=== PATIENT | female | born 1970 | race Caucasian/White ===

== ENCOUNTER 2017-05-23 12:26 | Observation (INO) | payer MEDICAID, SELFPAY ==
[2017-05-23] VITALS (14 sets, daily range): BP systolic 104–128; BP diastolic 49–77; PULSE 72–92; RESP 15–24; TEMP 36.6–37.2; O2SAT 93–100; BMI 35.7; BMI 35.5; BMI 35.6
--- NOTE | 2017-05-23 12:35 | EKG12_ITS ---
Test Reason : SOB Blood Pressure : / mmHG Vent. Rate : 084 BPM Atrial Rate : 084 BPM P-R Int : 196 ms QRS Dur : 086 ms QT Int : 436 ms P-R-T Axes : 069 090 068 degrees QTc Int : 515 ms Normal sinus rhythm Prolonged QT Abnormal ECG Confirmed by KONSTANTIN ESPAÑA ([id number]), online editor RASHI ANDRADE ([id number] on 05/25/2017 1:03:22 PM Referred By: SEBAS Confirmed By:KONSTANTIN ESPAÑA
--- NOTE | 2017-05-23 12:35 | RAD_ITS ---
STUDY: X-RAY CHEST REASON FOR EXAM: Female, 46 years old. Increasing shortness of breath with yellow sputum TECHNIQUE: PA and lateral views of the chest. COMPARISON: Comparison is made with prior study dated February 02, 2017. FINDINGS: There is evidence of vascular congestion and mild degree of CHF. There is blunting of the left costophrenic angle. There is borderline cardiomegaly. A left-sided dual-chamber pacemaker is seen. Normal mediastinum and gema. Normal visualized pulmonary arteries. Normal visualized aortic arch and descending thoracic aorta. Prior fusion of the lower thoracic and upper lumbar vertebrae. Normal visualized ribs, clavicles, and shoulders. There is no demonstrated abnormality of the visualized soft tissue structures of the upper abdomen. RAD/Chest PA and Lateral IMPRESSION: Impression congestion and mild degree of CHF. Electronically Signed: Gerardo Ham MD at 13:29 EDT Tel [phone], Service support ,
--- NOTE | 2017-05-23 12:36 | ED.VISSUMM ---
- ER Visit Summary Date of Service: 05/23/17 Chief Complaint: SOB History of Present Illness: The patient is a 46 F who returns with shortness of breath. She has been having this for 2 weeks. She saw her primary care physician who gave her doxycycline and steroids. She continues to have shortness of breath. She was 88% today in the office. She does have a history of CHF and gets weekly infusions of Lasix. Her weight has gone up 5 pounds in the past week. Her shortness of breath does get worse with exertion. She denies any chest pain. Physical Examination: Vital signs reviewed. HEENT exam unremarkable. Heart is regular rate and rhythm without murmurs. Lungs have respiratory and extra Tory wheezing. Abdomen is soft and nontender. Extremities reveal no edema. Skin exam normal. Neurologic exam normal. Test Results: EEG was normal sinus rhythm. Chest x-ray reveals CHF. Creatinine 1.79. Troponin indeterminate 0.09. BNP 251 Emergency Department Course and Treatment: She will be given 1 dose of Lasix here Treatment Plan: To the hospital for diuresis due to CHF exacerbation Disposition: Admit Impression: CHF exacerbation ED Disposition - Plan for ED Patient: Chief Complaint: Shortness of Breath Referrals: Bryce Pelaez MD [Primary Care Provider] -
[2017-05-23 12:53] LABS: Absolute Lymphocyte Count 1.02 X10^3/ul (0.83-4.51); Absolute Neutrophil Count 10.5 X10^3/uL (2.0-7.7); Basophil# 0.03 X10^3/uL; Basophil% 0.2 % (0-1); Differential Indicated SCAN CRITERIA MET; Eosinophil# 0.18 X10^3/uL; Eosinophils% 1.3 % (0-5); Hematocrit 40.4 % (37-47); Lymphocyte # 1.02 X10^3/ul (4.0); Lymphocyte % 7.4 % (19-41); Mean Corp Hgb Conc 32.2 g/gl (32-36); Mean Corpuscular Hgb 31.7 pg (27.0-32.0); Mean Corpuscular Volume 98.5 fL (81-99); Mean Platelet Vol. 10.3 fl (6.2-12.0); Monocyte# 2.08 X10^3/uL; Monocyte% 15.1 % (0-10); Neutrophil # 10.45 X10^3/uL (2.7-7.7); Neutrophil % 75.6 % (47-70); POSITIVE COUNT NO; POSITIVE DIFFERENTIAL YES; POSITIVE MORPHOLOGY NO; Platelet Count 197 K/mm3 (150-450); RBC Distribution Width CV 15.5 % (11.6-14.6); RBC Distribution Width SD 55.7 fl (35.1-43.9); White Blood Count 13.8 K/mm3 (4.4-11.0)
[2017-05-23 13:18] LABS: Differential Comment SCANNED
[2017-05-23 13:19] LABS: BNP,B-Type NATRIURETIC PEPTIDE 251.8 pg/mL (0-100)
[2017-05-23 13:28] LABS: Anion Gap 10 (5-15); BUN 41 mg/dL (7-18); BUN/Creat Ratio 22.9 RATIO (10-20); Calcium,Total 9.4 mg/dL (8.5-10.1); Chloride 95 mmol/L (98-107); Creatinine, Serum 1.79 mg/dL (0.55-1.02); EST Glomerular Filtration Rate 32 mL/min (>60); Est Glom Filt Rate - Afr Amer 39 mL/min (>60); Estimated Creatinine Clearance 29.63 ml/min; Glucose 265 mg/dL (70-110); Sodium Level 133 mmol/L (136-145)
[2017-05-23] MEDS: Furosemide 40 MG/4 ML Vial IV (14:02)
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
[2017-05-23] MEDS: Ipratropium/Albuterol Sulfate 3 ML AMPUL.NEB INHALATION ×3 (15:21→23:01)
[2017-05-23] MEDS: Aspirin 81 MG TAB.CHEW PO (16:35)
[2017-05-23 17:40] LABS: Bedside Glucose 139 mg/dL (70-110)
[2017-05-23] MEDS: guaiFENesin/Codeine 5 ML UDC PO (21:19)
[2017-05-23] MEDS: oxyCODONE 5 MG Tablet PO (21:20)
[2017-05-23] MEDS: guaiFENesin 1,200 MG Tablet 1200 MG PO (21:21)
[2017-05-23] MEDS: APIXABAN 2.5 MG TABLET PO (21:22)
[2017-05-23] MEDS: Docusate Sodium 100 MG Capsule PO (21:23)
[2017-05-23] MEDS: Senna Tablet 2 TABLET PO (21:23)
[2017-05-23] MEDS: Ascorbic Acid 500 MG Tablet 1000 MG PO (21:24)
[2017-05-23 22:51] LABS: Bedside Glucose 133 mg/dL (70-110)
[2017-05-24] VITALS (18 sets, daily range): BP systolic 97–120; BP diastolic 43–79; PULSE 72–96; RESP 16–20; TEMP 36.3–37.2; O2SAT 91–96
[2017-05-24 02:21] LABS: Bedside Glucose 74 mg/dL (70-110)
[2017-05-24] MEDS: Ipratropium/Albuterol Sulfate 3 ML AMPUL.NEB INHALATION ×5 (03:17→23:00)
[2017-05-24 04:16] LABS: Absolute Lymphocyte Count 1.13 X10^3/ul (0.83-4.51); Absolute Neutrophil Count 8.5 X10^3/uL (2.0-7.7); Basophil# 0.06 X10^3/uL; Basophil% 0.5 % (0-1); Differential Indicated SCAN CRITERIA MET; Eosinophils% 2.4 % (0-5); Hematocrit 37.6 % (37-47); Hemoglobin 12.2 g/dl (12.0-15.0); Lymphocyte # 1.13 X10^3/ul (4.0); Lymphocyte % 9.1 % (19-41); Mean Corp Hgb Conc 32.4 g/gl (32-36); Mean Corpuscular Hgb 31.9 pg (27.0-32.0); Mean Corpuscular Volume 98.2 fL (81-99); Mean Platelet Vol. 10.3 fl (6.2-12.0); Monocyte# 2.39 X10^3/uL; Monocyte% 19.2 % (0-10); Neutrophil # 8.51 X10^3/uL (2.7-7.7); Neutrophil % 68.4 % (47-70); POSITIVE COUNT NO; POSITIVE DIFFERENTIAL YES; POSITIVE MORPHOLOGY NO; Platelet Count 187 K/mm3 (150-450); RBC Distribution Width CV 15.4 % (11.6-14.6); RBC Distribution Width SD 53.5 fl (35.1-43.9); Red Blood Count 3.83 M/mm3 (4.2-5.4); White Blood Count 12.4 K/mm3 (4.4-11.0)
[2017-05-24 04:41] LABS: Anion Gap 13 (5-15); BUN 44 mg/dL (7-18); BUN/Creat Ratio 22.2 RATIO (10-20); Calcium,Total 9.5 mg/dL (8.5-10.1); Chloride 95 mmol/L (98-107); Cholesterol 139 mg/dL (200); Creatinine, Serum 1.98 mg/dL (0.55-1.02); EST Glomerular Filtration Rate 29 mL/min (>60); Est Glom Filt Rate - Afr Amer 35 mL/min (>60); Estimated Creatinine Clearance 26.79 ml/min; Glucose 108 mg/dL (70-110); High Density Lipoprotein 46 mg/dL; Sodium Level 135 mmol/L (136-145); Thyroid Stim Hormone (TSH) 3.35 uIU/mL (0.358-3.74); Triglycerides 112 mg/dL; Very Low Density Lipoprotein 22 mg/dL (5-40)
[2017-05-24 05:23] LABS: Differential Comment SCANNED
[2017-05-24] MEDS: Levothyroxine 100 MCG Tablet PO (05:40)
[2017-05-24] MEDS: guaiFENesin/Codeine 5 ML UDC PO ×2 (06:02→21:42)
[2017-05-24 06:56] LABS: Magnesium 2.3 mg/dL (1.8-2.4)
--- NOTE | 2017-05-24 07:56 | PCM.PROGNOTE ---
Subjective: Patient is a 46-year-old female with past medical history of type 1 diabetes mellitus, ischemic cardiomyopathy with an ejection fraction of 37% on ECHO Jul 2016, chronic congestive heart failure, COPD, dual-chamber pacemaker, insulin pump, coronary artery disease with history of PTCA, chronic renal failure stage III, hypothyroidism, severe pulmonary hypertension and morbid obesity who presented to [facility] complaining of cough associated with shortness of breath X 2 weeks and fever/chills for the past 2 days. She had been treated with doxycycline as an outpatient without improvement. Her highest temp since admission was 99?F orally. Significant lab in the emergency room showed a white blood cell count of 13.8 with 76% neutrophils, sodium 133, potassium 3.0 and BUN was 41 with a creatinine of 1.79. 1.79 is within her normal range. BNP was 252. Chest x-ray did not show infiltrates but there is mild pulmonary vascular congestion which I suspect is due to pulmonary hypertension rather than acute congestive heart failure. - Physical Exam General: Alert, Oriented x3, Cooperative, No apparent distress HEENT: Atraumatic, PERRLA, EOMI, Normocephalic Oral: No Gingival or Mucosal Lesions/ Ulcerations Neck: Supple, No Nodes, No Nuchal Rigidity, Trachea Midline Lungs: Diminished, Wheezes, - - No conversational dyspnea and she is not tachypneic Cardiovascular: Regular rate, Regular Rhythm, Normal S1, Normal S2, No murmurs, No rub noted, No Gallop Abdomen: Bowel Sounds Present, Soft, Non Tender Extremities: No cyanosis, No edema, No Calf Tenderness Skin: No rashes, No breakdown Neurological: Cranial nerves II-XII grossly intact, Neuro grossly intact Psych/Mental Status: Normal Affect, Appropriate Vital Signs Temp Pulse Resp BP Pulse Ox 97.8 F 77 18 115/58 96 05/24/17 05:48 05/24/17 05:48 05/24/17 05:48 05/24/17 05:48 05/24/17 05:48 Oxygen Flow Rate 2 Oxygen Delivery Method Nasal Cannula Weight: 188 lb 4.396 oz Body Mass Index (BMI) 35.5 Intake and Output for Last 24 Hours 05/22/17 05/23/17 05/24/17 23:59 23:59 23:59 Intake Total 320 Output Total 1500 700 Balance -1180 -700 Microbiology Past 72 Hours 05/23/17 22:35 Gram Stain - Preliminary Sputum, Expectorated/Coughed 05/23/17 15:30 Influenza Types A,B Direct FA (KAJAL) - Final Mucosa - Nasopharyngeal Laboratory Tests Past 24 Hrs 05/23/17 05/23/17 05/24/17 16:26 21:13 03:48 WBC 12.4 H RBC 3.83 L Hgb 12.2 Hct 37.6 MCV 98.2 MCH 31.9 MCHC 32.4 RDW 15.4 H RDW Differential 53.5 H Plt Count 187 MPV 10.3 Immature Gran % (Auto) 0.400 Neut % (Auto) 68.4 Lymph % (Auto) 9.1 L [place] % (Auto) 19.2 H Eos % (Auto) 2.4 Baso % (Auto) 0.5 Absolute Neuts (auto) 8.5 H Absolute Lymphs (auto) 1.13 Total Counted Not Reportable Differential Comment SCANNED Diff Path Review May foll Sodium Potassium Chloride Carbon Dioxide Anion Gap BUN Creatinine Estim Creat Clear Calc Est GFR (MDRD) Af Amer Est GFR (MDRD) Non-Af BUN/Creatinine Ratio Glucose Hemoglobin A1c Calcium Magnesium Troponin I 0.09 H 0.10 H Triglycerides Cholesterol LDL Cholesterol VLDL Cholesterol HDL Cholesterol TSH 05/24/17 05/24/17 05/24/17 03:48 03:48 03:48 WBC RBC Hgb Hct MCV MCH MCHC RDW RDW Differential Plt Count MPV Immature Gran % (Auto) Neut % (Auto) Lymph % (Auto) [place] % (Auto) Eos % (Auto) Baso % (Auto) Absolute Neuts (auto) Absolute Lymphs (auto) Total Counted Differential Comment Diff Path Review Sodium 135 L Potassium 3.0 L Chloride 95 L Carbon Dioxide 27.0 Anion Gap 13 BUN 44 H Creatinine 1.98 H Estim Creat Clear Calc 26.79 Est GFR (MDRD) Af Amer 35 L Est GFR (MDRD) Non-Af 29 L BUN/Creatinine Ratio 22.2 H Glucose 108 Hemoglobin A1c 8.0 H Calcium 9.5 Magnesium Troponin I 0.09 H Triglycerides 112 Cholesterol 139 LDL Cholesterol 71 VLDL Cholesterol 22 HDL Cholesterol 46 TSH 3.35 05/24/17 03:48 WBC RBC Hgb Hct MCV MCH MCHC RDW RDW Differential Plt Count MPV Immature Gran % (Auto) Neut % (Auto) Lymph % (Auto) [place] % (Auto) Eos % (Auto) Baso % (Auto) Absolute Neuts (auto) Absolute Lymphs (auto) Total Counted Differential Comment Diff Path Review Sodium Potassium Chloride Carbon Dioxide Anion Gap BUN Creatinine Estim Creat Clear Calc Est GFR (MDRD) Af Amer Est GFR (MDRD) Non-Af BUN/Creatinine Ratio Glucose Hemoglobin A1c Calcium Magnesium 2.3 Troponin I Triglycerides Cholesterol LDL Cholesterol VLDL Cholesterol HDL Cholesterol TSH POC Glucose 05/24/17 05/23/17 05/23/17 02:16 22:40 16:47 POC Glucose 74 133 H 139 H Assessment/Plan Impressions 1. Asthmatic bronchitis -has already received appropriate outpatient therapy with doxycycline 2. Type 1 diabetes mellitus with an insulin pump 3. 2 of 4 SIRS criteria with no evidence of infection, sepsis ruled out 4. Hypoxemia 5. Chronic renal failure stage IV 6. Acute on chronic systolic/diastolic heart failure 7. Status post AICD-history of V. tach 8. Severe pulmonary hypertension 9. Obesity 10. Hypertension 11. Ischemic cardiomyopathy with 25% ejection fraction 12. Hypothyroidism Discontinue steroids orally and add budesonide to aerosol treatments - to avoid severely increased BS's/DKA Continue DuoNeb aerosols and as needed albuterol aerosols Guaifenesin 1200 mg twice daily Reevaluate in the a.m. Appreciate Dr. Barajas consult.
[2017-05-24] MEDS: Metoclopramide 10 MG Tablet PO (08:21)
[2017-05-24] MEDS: Aspirin 81 MG TAB.CHEW PO (09:35)
[2017-05-24] MEDS: Senna Tablet 2 TABLET PO ×2 (09:37→21:45)
[2017-05-24] MEDS: Docusate Sodium 100 MG Capsule PO ×2 (09:37→21:45)
[2017-05-24] MEDS: Amiodarone 200 MG Tablet PO (09:37)
[2017-05-24] MEDS: Ascorbic Acid 500 MG Tablet 1000 MG PO ×2 (09:37→21:42)
[2017-05-24] MEDS: guaiFENesin 1,200 MG Tablet 1200 MG PO ×2 (09:38→21:44)
[2017-05-24] MEDS: APIXABAN 2.5 MG TABLET PO ×2 (09:38→21:46)
[2017-05-24] MEDS: Polyethylene Glycol 3350 17 GM PACKET PO (09:38)
[2017-05-24] MEDS: Clopidogrel Bisulfate 75 MG Tablet PO (09:38)
[2017-05-24] MEDS: Atorvastatin Calcium 80 MG Tablet PO (09:44)
[2017-05-24] MEDS: Albuterol 2.5 MG/3 ML VIAL.NEB. INHALATION (09:53)
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
[2017-05-24] MEDS: Torsemide 100 MG Tablet PO ×2 (11:33→17:25)
--- NOTE | 2017-05-24 11:55 | CASEMGMT ---
1130 This RN CM to bedside to complete assessment and dietary is at bedside with pt. Florence RN CM
[2017-05-24] MEDS: Acetaminophen 325 MG Tablet 650 MG PO (13:58)
[2017-05-24] MEDS: Insulin Basal Pump 2.4 UNIT SC (14:30)
[2017-05-24 14:40] LABS: Pathologist Review Reviewed
--- NOTE | 2017-05-24 15:12 | CASEMGMT ---
[id number] Face to Face with patient for initial transition planning/care coordination assessment. RN LINDSAY introduced self and role at [facility], pt voices understanding and consents to assessment at this time. Pt is sitting up in chair in no distress at this time. Pt A/O x4 at this time and answers all questions appropriately at this time. Care providers, pharmacy, and demographics verified. See attached link. Pt states no further concerns/needs at this time. Advised pt to ask for CM if any further questions/concerns/needs arise, pt voices understanding. PLAN[place] [facility]
[2017-05-24 15:28] LABS: Bedside Glucose 320 mg/dL (70-110)
[2017-05-24 15:32] LABS: Bedside Glucose 146 mg/dL (70-110)
[2017-05-24 15:56] LABS: Bedside Glucose 397 mg/dL (70-110)
[2017-05-24] MEDS: Budesonide Respules 0.5 MG/2 ML AMPUL.NEB. INHALATION (16:01)
[2017-05-24] MEDS: Insulin Bolus Pump SC ×2 (16:05→21:43)
[2017-05-24 17:31] LABS: Bedside Glucose 340 mg/dL (70-110)
[2017-05-24 21:56] LABS: Bedside Glucose 432 mg/dL (70-110)
[2017-05-24] MEDS: LORazepam 0.5 MG Tablet PO (23:55)
[2017-05-25] VITALS (10 sets, daily range): BP systolic 91–116; BP diastolic 45–65; PULSE 76–91; RESP 16–18; TEMP 36.5–37.1; O2SAT 91–96
[2017-05-25 00:01] LABS: Bedside Glucose 381 mg/dL (70-110)
[2017-05-25 01:46] LABS: Bedside Glucose 288 mg/dL (70-110)
[2017-05-25] MEDS: Ipratropium/Albuterol Sulfate 3 ML AMPUL.NEB INHALATION ×4 (02:31→15:01)
[2017-05-25] MEDS: Metoclopramide 10 MG Tablet PO (06:34)
[2017-05-25] MEDS: Levothyroxine 100 MCG Tablet PO (06:34)
[2017-05-25 06:43] LABS: Hematocrit 37.9 % (37-47); Hemoglobin 12.2 g/dl (12.0-15.0); Mean Corp Hgb Conc 32.2 g/gl (32-36); Mean Corpuscular Hgb 31.9 pg (27.0-32.0); Mean Platelet Vol. 10.4 fl (6.2-12.0); Platelet Count 201 K/mm3 (150-450); RBC Distribution Width CV 15.3 % (11.6-14.6); RBC Distribution Width SD 53.4 fl (35.1-43.9); Red Blood Count 3.83 M/mm3 (4.2-5.4); White Blood Count 16.7 K/mm3 (4.4-11.0)
[2017-05-25 06:47] LABS: Scan Indicated on CBC? Y/N NO
[2017-05-25 07:00] LABS: ALB/GLOB Ratio 0.6 RATIO (0.9-2.4); AST(SGOT) 26 U/L (15-37); Alanine Aminotransfer ALT/SGPT 30 U/L (12-78); Albumin, Serum 2.9 g/dL (3.4-5.0); Alkaline Phosphatase 121 U/L (45-117); Anion Gap 11 (5-15); BUN 46 mg/dL (7-18); BUN/Creat Ratio 25.1 RATIO (10-20); Calcium,Total 9.4 mg/dL (8.5-10.1); Chloride 100 mmol/L (98-107); Creatinine, Serum 1.83 mg/dL (0.55-1.02); EST Glomerular Filtration Rate 32 mL/min (>60); Est Glom Filt Rate - Afr Amer 38 mL/min (>60); Estimated Creatinine Clearance 28.99 ml/min; Globulin 4.8 g/dL (2.3-3.5); Glucose 93 mg/dL (70-110); Phosphorus 2.7 mg/dL (2.5-4.9); Protein, Total 7.7 g/dL (6.4-8.2); Sodium Level 137 mmol/L (136-145)
[2017-05-25 07:01] LABS: Bedside Glucose 68 mg/dL (70-110)
[2017-05-25 07:10] LABS: Bedside Glucose 64 mg/dL (70-110)
[2017-05-25] MEDS: Budesonide Respules 0.5 MG/2 ML AMPUL.NEB. INHALATION (07:30)
[2017-05-25 07:31] LABS: Bedside Glucose 102 mg/dL (70-110)
[2017-05-25] MEDS: Aspirin 81 MG TAB.CHEW PO (07:34)
[2017-05-25] MEDS: Insulin Bolus Pump SC ×2 (08:45→12:47)
[2017-05-25] MEDS: Ascorbic Acid 500 MG Tablet 1000 MG PO (09:47)
[2017-05-25] MEDS: guaiFENesin 1,200 MG Tablet 1200 MG PO (09:48)
[2017-05-25] MEDS: Docusate Sodium 100 MG Capsule PO (09:48)
[2017-05-25] MEDS: Amiodarone 200 MG Tablet PO (09:48)
[2017-05-25] MEDS: Clopidogrel Bisulfate 75 MG Tablet PO (09:48)
[2017-05-25] MEDS: Torsemide 100 MG Tablet PO (09:48)
[2017-05-25] MEDS: Senna Tablet 2 TABLET PO (09:48)
[2017-05-25] MEDS: Atorvastatin Calcium 80 MG Tablet PO (09:48)
[2017-05-25] MEDS: Polyethylene Glycol 3350 17 GM PACKET PO (09:49)
[2017-05-25] MEDS: APIXABAN 2.5 MG TABLET PO (09:50)
--- NOTE | 2017-05-25 13:43 | PCM.DC ---
- Discharge Diagnoses Current Active Problems: Current Active and Chronic Problems Acute on chronic systolic CHF (congestive heart failure) (Acute) CKD stage 3 due to type 1 diabetes mellitus (Acute) COPD exacerbation (Acute) Diuresis (Acute) CKD (chronic kidney disease) stage 4, GFR 15-29 ml/min (Chronic) Reason(s) for Visit for Discharge Instructions: fluid overload, CKD You will use the following diet at home:: Cardiac, Fluid restricted (specify 2000 mls, 1500 mls, etc) - no more than 1500 mL per day, Renal (restricted protein/sodium) Your food should be the consistency of: Regular Your liquids should be the consistency of: Regular/Thin Discharge Activity: Return to Normal Activity, May not drive while taking narcotic pain medications., - - weigh yourself daily and keep a log of your weights. Weight Bearing Status: Weight bearing as tolerated Additional Activity Instructions:: Monitor your oxygen level at home, if less than 89%, wear 2L of oxygen and titrate up to keep your saturations 89-93%. Call your doctor if you observe: Fever of 101 or Higher, Coldness, Increased Pain, Numbness or Tingling, Change in Color, Inability to urinate, Inability to have a bowel movement, Shortness of breath, Dizziness, Fainting spells, Swelling in the ankles, Chest pain, Prolonged hiccoughing, Increased palpitations (irregular heartbeat), Calf discomfort, Uncontrolled pain Instructions: Taking Medication to Control Heart Failure, Diabetes and Kidney Disease, Discharge Instructions for Acute Kidney Injury, Discharge Instructions: COPD, Discharge Instructions for Heart Failure, Pulmonary Hypertension Allergies/Adverse Reactions: Allergies Iodinated Contrast- Oral and IV Dye [CONTRASTS] Allergy (Verified 05/23/17 09:01) Unknown lisinopril Allergy (Verified 05/23/17 09:01) Shortness of breath pregabalin [From Lyrica] Allergy (Verified 05/23/17 09:01) Other rivaroxaban [From Xarelto] Adverse Reaction (Verified 05/23/17 09:01) Other CAUSES BLLEDING, BRUSING, BLOODY NOSE Medications to take at Discharge Amiodarone HCl 200 mg PO DAILY 05/23/17 Apixaban [Eliquis] 2.5 mg PO BID 05/23/17 Ascorbic Acid [Vitamin C] 1,000 mg PO BID 05/23/17 Aspirin [Aspirin, Baby] 81 mg PO DAILY@0800 05/23/17 Atorvastatin Calcium 80 mg PO DAILY 05/23/17 Cholecalciferol (Vitamin D3) [Vitamin D3] 4,000 unit PO DAILY 05/23/17 Clopidogrel Bisulfate [Plavix] 75 mg PO DAILY 05/23/17 Docusate Sodium [Colace] 100 mg PO BID 05/23/17 Fluticasone/Vilanterol [Breo Ellipta 100-25 Mcg INH] 1 each IH DAILY 05/23/17 Insulin Basal Pump (Pt's Own) [Pump, Basal] 0 unit SC UD 05/23/17 Levothyroxine [Synthroid] 100 mcg PO DAILY 05/23/17 Lorazepam [Ativan] 0.5 mg PO QHS PRN PRN 05/23/17 Metoclopramide [Reglan] 5 mg PO DAILY 05/23/17 Polyethylene Glycol 3350 [Miralax] 17 gm PO DAILY 05/23/17 Sennosides [Senna] 2 tab PO BID 05/23/17 Spironolactone [Aldactone] 50 mg PO DAILY 05/23/17 Torsemide [Demadex] 100 mg PO BID 05/23/17 Ubidecarenone [Co Q-10] 100 mg PO DAILY 05/23/17 Umeclidinium [place] [Incruse Ellipta] 62.5 mcg IH DAILY 05/23/17 Albuterol Inhaler [Ventolin Hfa] 1 - 2 puff INHALATION Q4H PRN PRN #1 inhaler 05/25/17 Guaifenesin [Mucinex] 1,200 mg PO BID #60 tablet 05/25/17 Potassium Chloride [K-Dur] 80 meq PO BIDCM tablet 05/25/17 SimETHICONE [Mylicon] 80 mg PO Q4H PRN #30 tablet 05/25/17 SimETHICONE [Mylicon] 80 mg PO Q4H PRN PRN tablet 05/25/17 The following prescriptions were given: Albuterol Inhaler [Ventolin Hfa] 1 - 2 puff INHALATION Q4H PRN PRN #1 inhaler PRN Reason: Sob &/Or Wheezing SimETHICONE [Mylicon] 80 mg PO Q4H PRN #30 tablet PRN Reason: Gas Guaifenesin [Mucinex] 1,200 mg PO BID #60 tablet Primary Care Physician: Bryce Pelaez MD [Primary Care Provider] - Please follow up with your Primary Care Physician in: in 1-2 weeks Please Follow Up With: Macy Gustafson When: 2-4 weeks
--- NOTE | 2017-05-25 13:49 | DCINST_ITS ---
- Discharge Diagnoses Current Active Problems: Current Active and Chronic Problems Acute on chronic systolic CHF (congestive heart failure) (Acute) CKD stage 3 due to type 1 diabetes mellitus (Acute) COPD exacerbation (Acute) Diuresis (Acute) CKD (chronic kidney disease) stage 4, GFR 15-29 ml/min (Chronic) Reason(s) for Visit for Discharge Instructions: fluid overload, CKD You will use the following diet at home:: Cardiac, Fluid restricted (specify 2000 mls, 1500 mls, etc) - no more than 1500 mL per day, Renal (restricted protein/sodium) Your food should be the consistency of: Regular Your liquids should be the consistency of: Regular/Thin Discharge Activity: Return to Normal Activity, May not drive while taking narcotic pain medications., - - weigh yourself daily and keep a log of your weights. Weight Bearing Status: Weight bearing as tolerated Additional Activity Instructions:: Monitor your oxygen level at home, if less than 89%, wear 2L of oxygen and titrate up to keep your saturations 89-93%. Call your doctor if you observe: Fever of 101 or Higher, Coldness, Increased Pain, Numbness or Tingling, Change in Color, Inability to urinate, Inability to have a bowel movement, Shortness of breath, Dizziness, Fainting spells, Swelling in the ankles, Chest pain, Prolonged hiccoughing, Increased palpitations (irregular heartbeat), Calf discomfort, Uncontrolled pain Instructions: Taking Medication to Control Heart Failure, Diabetes and Kidney Disease, Discharge Instructions for Acute Kidney Injury, Discharge Instructions : COPD, Discharge Instructions for Heart Failure, Pulmonary Hypertension Allergies/Adverse Reactions: Allergies Iodinated Contrast- Oral and IV Dye [CONTRASTS] Allergy (Verified 05/23/17 09:01 ) Unknown lisinopril Allergy (Verified 05/23/17 09:01) Shortness of breath pregabalin [From Lyrica] Allergy (Verified 05/23/17 09:01) Other rivaroxaban [From Xarelto] Adverse Reaction (Verified 05/23/17 09:01) Other CAUSES BLLEDING, BRUSING, BLOODY NOSE Medications to take at Discharge Amiodarone HCl 200 mg PO DAILY 05/23/17 Apixaban [Eliquis] 2.5 mg PO BID 05/23/17 Ascorbic Acid [Vitamin C] 1,000 mg PO BID 05/23/17 Aspirin [Aspirin, Baby] 81 mg PO DAILY@0800 05/23/17 Atorvastatin Calcium 80 mg PO DAILY 05/23/17 Cholecalciferol (Vitamin D3) [Vitamin D3] 4,000 unit PO DAILY 05/23/17 Clopidogrel Bisulfate [Plavix] 75 mg PO DAILY 05/23/17 Docusate Sodium [Colace] 100 mg PO BID 05/23/17 Fluticasone/Vilanterol [Breo Ellipta 100-25 Mcg INH] 1 each IH DAILY 05/23/17 Insulin Basal Pump (Pt's Own) [Pump, Basal] 0 unit SC UD 05/23/17 Levothyroxine [Synthroid] 100 mcg PO DAILY 05/23/17 Lorazepam [Ativan] 0.5 mg PO QHS PRN PRN 05/23/17 Metoclopramide [Reglan] 5 mg PO DAILY 05/23/17 Polyethylene Glycol 3350 [Miralax] 17 gm PO DAILY 05/23/17 Sennosides [Senna] 2 tab PO BID 05/23/17 Spironolactone [Aldactone] 50 mg PO DAILY 05/23/17 Torsemide [Demadex] 100 mg PO BID 05/23/17 Ubidecarenone [Co Q-10] 100 mg PO DAILY 05/23/17 Umeclidinium [place] [Incruse Ellipta] 62.5 mcg IH DAILY 05/23/17 Albuterol Inhaler [Ventolin Hfa] 1 - 2 puff INHALATION Q4H PRN PRN #1 inhaler Guaifenesin [Mucinex] 1,200 mg PO BID #60 tablet 05/25/17 Potassium Chloride [K-Dur] 80 meq PO BIDCM tablet 05/25/17 SimETHICONE [Mylicon] 80 mg PO Q4H PRN #30 tablet 05/25/17 SimETHICONE [Mylicon] 80 mg PO Q4H PRN PRN tablet 05/25/17 The following prescriptions were given: Albuterol Inhaler [Ventolin Hfa] 1 - 2 puff INHALATION Q4H PRN PRN #1 inhaler PRN Reason: Sob &/Or Wheezing SimETHICONE [Mylicon] 80 mg PO Q4H PRN #30 tablet PRN Reason: Gas Guaifenesin [Mucinex] 1,200 mg PO BID #60 tablet Primary Care Physician: Bryce Pelaez MD [Primary Care Provider] - Please follow up with your Primary Care Physician in: in 1-2 weeks Please Follow Up With: Macy Gustafson When: 2-4 weeks
--- NOTE | 2017-05-25 14:47 | CASEMGMT ---
SW spoke with patient as she wanted information on healthcare power of senior attorney and living will. She did not want to complete the documents. Jackie RADER MSW
--- NOTE | 2017-05-26 06:28 | PCM.DC.SUM ---
Discharge Date and Diagnosis Date of Admission: 05/23/17 Date of Discharge: 05/25/17 - Primary Discharge Diagnosis Active and Suspected Problems Acute asthmatic bronchitis Hypokalemia (Acute) - Secondary Discharge Diagnosis Chronic Problems CHF (congestive heart failure) (Chronic) ischemic cardiomyopathy low ef 15% severe pulm HTN PAP 80 and R->L shunt CKD (chronic kidney disease) stage 4, GFR 15-29 ml/min (Chronic) Pulmonary HTN (Chronic) PA pressure on ECHO in Aug is 80. Ventricular tachycardia (paroxysmal) (Chronic) coronary artery disease (Chronic) Type 1 diabetes mellitus Hypertension Hospital Course and Treatment Imaging Results: Clinical Impression(s) from Imaging Studies Chest X-Ray 05/23/17 12:35 IMPRESSION: Impression congestion and mild degree of CHF. Electronically Signed: Gerardo Ham MD at 13:29 EDT Tel [phone], Service support , Laboratory Last Values WBC 16.7 K/mm3 (4.4-11.0) H 05/25/17 06:05 RBC 3.83 M/mm3 (4.2-5.4) L 05/25/17 06:05 Hgb 12.2 g/dl (12.0-15.0) 05/25/17 06:05 Hct 37.9 % (37-47) 05/25/17 06:05 MCV 99.0 fL (81-99) 05/25/17 06:05 MCH 31.9 pg (27.0-32.0) 05/25/17 06:05 MCHC 32.2 g/gl (32-36) 05/25/17 06:05 RDW 15.3 % (11.6-14.6) H 05/25/17 06:05 RDW Differential 53.4 fl (35.1-43.9) H 05/25/17 06:05 Plt Count 201 K/mm3 (150-450) 05/25/17 06:05 MPV 10.4 fl (6.2-12.0) 05/25/17 06:05 Immature Gran % (Auto) 0.400 % (0.0-0.9) 05/24/17 03:48 Neut % (Auto) 68.4 % (47-70) 05/24/17 03:48 Lymph % (Auto) 9.1 % (19-41) L 05/24/17 03:48 [place] % (Auto) 19.2 % (0-10) H 05/24/17 03:48 Eos % (Auto) 2.4 % (0-5) 05/24/17 03:48 Baso % (Auto) 0.5 % (0-1) 05/24/17 03:48 Absolute Neuts (auto) 8.5 X10^3/uL (2.0-7.7) H 05/24/17 03:48 Absolute Lymphs (auto) 1.13 X10^3/ul (0.83-4.51) 05/24/17 03:48 Total Counted Not Reportable 05/24/17 03:48 Differential Comment SCANNED 05/24/17 03:48 Diff Path Review Reviewed 05/24/17 03:48 Sodium 137 mmol/L (136-145) 05/25/17 06:05 Potassium 3.0 mmol/L (3.5-5.1) L 05/25/17 06:05 Chloride 100 mmol/L (98-107) 05/25/17 06:05 Carbon Dioxide 26.0 mmol/L (21.0-32.0) 05/25/17 06:05 Anion Gap 11 (5-15) 05/25/17 06:05 BUN 46 mg/dL (7-18) H 05/25/17 06:05 Creatinine 1.83 mg/dL (0.55-1.02) H 05/25/17 06:05 Estim Creat Clear Calc 28.99 ml/min 05/25/17 06:05 Est GFR (MDRD) Af Amer 38 mL/min (>60) L 05/25/17 06:05 Est GFR (MDRD) Non-Af 32 mL/min (>60) L 05/25/17 06:05 BUN/Creatinine Ratio 25.1 RATIO (10-20) H 05/25/17 06:05 Glucose 93 mg/dL (70-110) 05/25/17 06:05 Hemoglobin A1c 8.0 % (4.2-6.3) H 05/24/17 03:48 Calcium 9.4 mg/dL (8.5-10.1) 05/25/17 06:05 Phosphorus 2.7 mg/dL (2.5-4.9) 05/25/17 06:05 Magnesium 2.3 mg/dL (1.8-2.4) 05/24/17 03:48 Total Bilirubin 0.70 mg/dL (0.20-1.00) 05/25/17 06:05 AST 26 U/L (15-37) 05/25/17 06:05 ALT 30 U/L (12-78) 05/25/17 06:05 Alkaline Phosphatase 121 U/L (45-117) H 05/25/17 06:05 Troponin I 0.09 ng/mL (<0.06) H 05/24/17 03:48 B-Natriuretic Peptide 251.8 pg/mL (0-100) H 05/23/17 12:43 Total Protein 7.7 g/dL (6.4-8.2) 05/25/17 06:05 Albumin 2.9 g/dL (3.4-5.0) L 05/25/17 06:05 Globulin 4.8 g/dL (2.3-3.5) H 05/25/17 06:05 Albumin/Globulin Ratio 0.6 RATIO (0.9-2.4) L 05/25/17 06:05 Triglycerides 112 mg/dL (-199) 05/24/17 03:48 Cholesterol 139 mg/dL (200) 05/24/17 03:48 LDL Cholesterol 71 mg/dL (0-130) 05/24/17 03:48 VLDL Cholesterol 22 mg/dL (5-40) 05/24/17 03:48 HDL Cholesterol 46 mg/dL (40-) 05/24/17 03:48 TSH 3.35 uIU/mL (0.358-3.74) 05/24/17 03:48 POC Glucose 102 mg/dL (70-110) 05/25/17 07:23 None Operations: None Procedures: None Summary of Care Provided: Patient is a 46-year-old female with past medical history of type 1 diabetes mellitus, ischemic cardiomyopathy with an ejection fraction of 37% on ECHO Jul 2016, chronic congestive heart failure, COPD, dual-chamber pacemaker, insulin pump, coronary artery disease with history of PTCA, chronic renal failure stage III, hypothyroidism, severe pulmonary hypertension and morbid obesity who presented to [facility] complaining of cough associated with shortness of breath X 2 weeks and fever/chills for the preceding 2 days. She had been treated with doxycycline as an outpatient without improvement. She was afebrile. Significant lab in the emergency room showed a white blood cell count of 13.8 with 76% neutrophils, sodium 133, potassium 3.0 and BUN was 41 with a creatinine of 1.79. 1.79 is within her normal range. BNP was 252. Chest x-ray did not show infiltrates but there is mild pulmonary vascular congestion which I suspect is due to pulmonary hypertension rather than acute congestive heart failure. She was admitted to the hospital and started on Rocephin which was later discontinued because there was no evidence of infection. Sputum culture had normal respiratory reji only. A Lasix drip was ordered but discontinued because the changes on chest x-ray were secondary to pulmonary hypertension and not due to congestive heart failure. BNP was 251 which is insignificant in a patient with stage IV renal failure and likely due to elevated creatinine. She was initially started on high-dose steroids but blood sugars significantly increased and this was discontinued due to risk of DKA in a type I diabetic. She was started on budesonide aerosols. On 05/25 she requested to be discharged. Temp was 98.2 and pulse rate was 80 with blood pressure of 91/45-116 over 65. Respiratory rate was 16 and pulse ox on room air was 96%. Heart had a regular rate and rhythm with no gallop. Lungs had rare expiratory wheeze with no crackles. She had no peripheral edema. She was given prescriptions for a Ventolin HFA inhaler, simethicone and guaifenesin. She will follow-up with her primary care doctor, Dr. Bryce Pelaez, in 1-2 weeks. She will follow-up with Dr. Barajas in 2-4 weeks. This note was generated with [employer]essel dictation software. It may contain incorrect words, spelling, and punctuation that were not noted in checking the note before signing. Discharge Activity: Return to Normal Activity, May not drive while taking narcotic pain medications., - - weigh yourself daily and keep a log of your weights. Weight Bearing Status: Weight bearing as tolerated Additional Activity Instructions:: Monitor your oxygen level at home, if less than 89%, wear 2L of oxygen and titrate up to keep your saturations 89-93%. Call your doctor if you observe: Fever of 101 or Higher, Coldness, Increased Pain, Numbness or Tingling, Change in Color, Inability to urinate, Inability to have a bowel movement, Shortness of breath, Dizziness, Fainting spells, Swelling in the ankles, Chest pain, Prolonged hiccoughing, Increased palpitations (irregular heartbeat), Calf discomfort, Uncontrolled pain Home Medications: Medications to take at Discharge Amiodarone HCl 200 mg PO DAILY 05/23/17 Apixaban [Eliquis] 2.5 mg PO BID 05/23/17 Ascorbic Acid [Vitamin C] 1,000 mg PO BID 05/23/17 Aspirin [Aspirin, Baby] 81 mg PO DAILY@0800 05/23/17 Atorvastatin Calcium 80 mg PO DAILY 05/23/17 Cholecalciferol (Vitamin D3) [Vitamin D3] 4,000 unit PO DAILY 05/23/17 Clopidogrel Bisulfate [Plavix] 75 mg PO DAILY 05/23/17 Docusate Sodium [Colace] 100 mg PO BID 05/23/17 Fluticasone/Vilanterol [Breo Ellipta 100-25 Mcg INH] 1 each IH DAILY 05/23/17 Insulin Basal Pump (Pt's Own) [Pump, Basal] 0 unit SC UD 05/23/17 Levothyroxine [Synthroid] 100 mcg PO DAILY 05/23/17 Lorazepam [Ativan] 0.5 mg PO QHS PRN PRN 05/23/17 Metoclopramide [Reglan] 5 mg PO DAILY 05/23/17 Polyethylene Glycol 3350 [Miralax] 17 gm PO DAILY 05/23/17 Sennosides [Senna] 2 tab PO BID 05/23/17 Spironolactone [Aldactone] 50 mg PO DAILY 05/23/17 Torsemide [Demadex] 100 mg PO BID 05/23/17 Ubidecarenone [Co Q-10] 100 mg PO DAILY 05/23/[address] [place] [Incruse Ellipta] 62.5 mcg IH DAILY 05/23/17 Albuterol Inhaler [Ventolin Hfa] 1 - 2 puff INHALATION Q4H PRN PRN #1 inhaler 05/25/17 Guaifenesin [Mucinex] 1,200 mg PO BID #60 tablet 05/25/17 Potassium Chloride [K-Dur] 80 meq PO BIDCM tablet 05/25/17 SimETHICONE [Mylicon] 80 mg PO Q4H PRN #30 tablet 05/25/17 SimETHICONE [Mylicon] 80 mg PO Q4H PRN PRN tablet 05/25/17 Following Prescrptions Were Given to Patient: Albuterol Inhaler [Ventolin Hfa] 1 - 2 puff INHALATION Q4H PRN PRN #1 inhaler PRN Reason: Sob &/Or Wheezing SimETHICONE [Mylicon] 80 mg PO Q4H PRN #30 tablet PRN Reason: Gas Guaifenesin [Mucinex] 1,200 mg PO BID #60 tablet Primary Care Physician: Bryce Pelaez MD [Primary Care Provider] - Please follow up with your Primary Care Physician in: in 1-2 weeks Please Follow Up With: Macy Gustafson When: 2-4 weeks Please Follow Up With: Bryce Pelaez Patient Instructions: Taking Medication to Control Heart Failure, Diabetes and Kidney Disease, Discharge Instructions for Acute Kidney Injury, Discharge Instructions: COPD, Discharge Instructions for Heart Failure, Pulmonary Hypertension Disposition: Home Minutes spent on discharge:: 30 Patient Condition:: Good Meaningful Use Info Meaningful Use Diagnoses (Choose all that apply): None applicable
--- NOTE | 2017-06-02 11:14 | CASEMGMT ---
Post-discharge call made. Patient expressed understanding of home care, prescription, and discharge instructions.
== END 2017-05-25 15:33 | disposition home or self-care (01) | DRG 140 ==
LOC: ED 06-04 13:48 → PCU 06-04 13:48
PROVIDERS: Internal Medicine; Admitting Provider Internal Medicine; Emergency Provider Emergency Medicine; Family Provider Family Medicine; PCP Family Medicine; Visit Provider Internal Medicine
DX: J44.1 Chronic obstructive pulmonary disease with (acute) exacerbation (principal); I13.0 Hypertensive heart and chronic kidney disease with heart failure and stage 1 through stage 4 chronic kidney disease, or unspecified chronic kidney disease; I50.23 Acute on chronic systolic (congestive) heart failure; I25.5 Ischemic cardiomyopathy; I27.2 Other secondary pulmonary hypertension; I25.10 Atherosclerotic heart disease of native coronary artery without angina pectoris; N18.4 Chronic kidney disease, stage 4 (severe); J96.01 Acute respiratory failure with hypoxia; E66.9 Obesity, unspecified; E03.9 Hypothyroidism, unspecified; E10.9 Type 1 diabetes mellitus without complications; E87.6 Hypokalemia; Z79.899 Other long term (current) drug therapy; Z68.35 Body mass index [BMI] 35.0-35.9, adult; Z95.5 Presence of coronary angioplasty implant and graft; Z79.4 Long term (current) use of insulin; Z96.41 Presence of insulin pump (external) (internal); Z95.810 Presence of automatic (implantable) cardiac defibrillator
CPT/HCPCS: 36415; 71020; 80048; 80053; 80061; 82962; 83036; 83735; 83880; 84100; 84132; 84443; 84484; 85025; 85027; 87070; 87205; 87804; 93005; 94640; 94667; 94668; 94762; 97802; 99211; 99218; 99284; J7050; A4216; G0378; G0463; J1940